=== PATIENT | male | born 1970 | race Caucasian/White ===

== ENCOUNTER 2020-05-12 11:04 | Outpatient (CLI) | payer BC ==
--- NOTE | 2020-05-12 13:35 | RAD ---
PA CHEST AND LEFT RIBS 5 VIEWS: HISTORY: Left rib pain. FINDINGS: Heart size appears slightly enlarged. Mediastinal structures are unremarkable. Lungs are clear of a ny infiltrates. No pleural effusion or pneumothorax. I do not see any evidence for rib fractures. IMPRESSION: Negative left ribs. POS: OFF
== END 2020-05-12 11:05 | disposition home or self-care (01) ==
LOC: NAV RAD 11:04
PROVIDERS: ATTEND Family Medicine
DX: R07.81 Pleurodynia (principal)